=== PATIENT | male | born 1995 | race Two or more races ===

== ENCOUNTER 2019-06-12 20:16 | Emergency (ER) | payer SELFPAY ==
[~2019-06-12] VITALS: Ht 172.7 cm; Wt 69.0 kg
[2019-06-12 22:10] VITALS: BP 123/76
== END 2019-06-12 22:19 | disposition home or self-care (01) ==
LOC: ER 20:16
DX: S02.2XXA Fracture of nasal bones, initial encounter for closed fracture (principal); F12.10 Cannabis abuse, uncomplicated; X58.XXXA Exposure to other specified factors, initial encounter; Y93.89 Activity, other specified; Y92.89 Other specified places as the place of occurrence of the external cause; Y99.8 Other external cause status
CPT/HCPCS: 99281